=== PATIENT | female | born 1995 | race Two or more races ===

== ENCOUNTER 2025-05-15 08:11 | Emergency (ER) | payer BC, SELFPAY ==
[2025-05-15 08:13] VITALS: BP 125/89
--- NOTE | 2025-05-15 08:29 | ED.GENMED ---
History of Present Illness
General
Chief Complaint: Cold/Flu/URI Symptoms
Source: patient
Exam Limitations: none
Time Seen by Provider: 05/15/25 08:21
History of Present Illness
History of Present Illness:
See MDM
Past History
Past History
ED Past Medical History: None
ED Past Surgical History: None
Social History
Tobacco: Non-smoker
Alcohol: None
Phy Exam
Physical Exam
Physical Exam:
See MDM
Course
Orders/Labs/Results
Orders:
Orders
05/15/25 08:28
Dexamethasone Pf [Decadron] 10 mg PO NOW STA
Ipratropium/Albuterol Sulfate [Duoneb] 3 ml INH R NOW STA
CR Chest - 2 Views Urgent
Comment:
Reason For Exam: cough
05/15/25 09:13
Azithromycin [Zithromax] 500 mg PO NOW STA
Vital Signs
Initial and Last Documented VS:
Initial Vital Signs
Temp Pulse Resp BP Pulse Ox
98.6 F 91 16 125/89 99
05/15/25 08:13 05/15/25 08:13 05/15/25 08:13 05/15/25 08:13 05/15/25 08:13
Last Documented Vital Signs
Temp Pulse Resp BP Pulse Ox
98.6 F 91 16 125/89 99
05/15/25 08:13 05/15/25 08:13 05/15/25 08:13 05/15/25 08:13 05/15/25 08:33
MDM/Problems Addressed
Differential Diagnosis Includes:
Note:
CHIEF COMPLAINT(S)
Persistent cough, sore throat, and neck pain for one week.
HISTORY OF PRESENT ILLNESS
The patient is a 30-year-old female who has been experiencing symptoms of a persistent cough, sore throat, neck pain, and nausea for approximately one week. The patient reports the cough is constant and severe enough to induce vomiting, particularly
after eating solid foods. 'When I just eat soup, its okay, but when I eat solid, its like I throw it up.' She describes a sensation of pressure and non-stop coughing, which disrupts her sleep. The symptoms started spontaneously seven days ago. She
was evaluated at an urgent care facility on Sunday, where she was provided with Tessalon Pearls for the cough. Both influenza and COVID-19 tests were negative. The patient denies any known allergies and has no history of asthma. It is suspected that
she might have a viral infection, leading to an inflammation of the respiratory tract, ynes to bronchitis, potentially causing bronchospasm and excessive mucus production.
PHYSICAL EXAM
General: Alert, no acute distress.
Skin: Warm, dry.
Head: Normocephalic, atraumatic.
Neck: Supple, with palpable but non-tender posterior cervical lymphadenopathy. No evidence of meningismus
Eyes, Ears, Nose, Mouth, and Throat: Oral mucosa moist.
Cardiovascular: No signs of central cyanosis.
Respiratory: Respirations are non-labored. No wheezing auscultated but there is evidence of bronchospastic cough
Gastrointestinal: Abdomen nondistended.
Musculoskeletal: No deformities.
Neurological: Alert with no obvious focal neurological deficit observed.
Psychiatric: Cooperative, appropriate mood and affect.
PLAN
1. Perform a chest X-ray to rule out any underlying complications, such as pneumonia.
2. Prescribe an inhaler to aid in opening the airways.
3. Administer a course of oral steroids to reduce inflammation and mucus production.
4. Consider starting empirical treatment with a course of azithromycin to cover the possibility of pertussis, despite suspicion of a viral origin.
5. Educate the patient on the nature of Tessalon Pearls and their ineffectiveness in this case, as the problem lies in the lungs, not the posterior pharynx.
6. Follow up on the response to treatment and reassess the need for antibiotics based on clinical improvement.
DIFFERENTIAL DIAGNOSIS
The Differential Diagnosis includes, in no particular order and is not limited to:
1. Viral upper respiratory tract infection.
2. Acute bronchitis.
3. Pertussis.
4. Gastroesophageal reflux disease (GERD).
5. Post-nasal drip syndrome.
6. Pneumonia.
7. Asthma.
8. Bronchospasm-related cough.
9. Sinusitis.
10. Foreign body aspiration (unlikely given the clinical picture but should be considered if symptoms persist).
SUMMARY OF ENCOUNTER
The patient presented with a persistent cough, sore throat, and neck pain accompanied by nausea for one week. The cough was severe and induced vomiting, especially after consuming solid foods. A previous evaluation ruled out influenza and COVID-19,
suspecting a possible viral infection. In the emergency department, the patient was further assessed, and although the chest was clear, a decision was made to empirically treat the patient with azithromycin to rule out pertussis and administer a
course of oral steroids to help reduce inflammation and mucus production. The patient expressed feeling better post-treatment.
DISPOSITION
Discharge.
ASSESSMENT
Suspected bronchitis with clinical symptoms requiring treatment to manage inflammation and possible pertussis as a differential consideration.
PLAN
1. Administer azithromycin to cover pertussis.
2. Prescribe oral steroids to manage inflammation.
3. Educate the patient about the inefficacy of Tessalon Pearls for her condition.
4. Advise follow-up with primary care physician for continued management and reassessment of symptoms.
PATIENT EDUCATION AND COUNSELING
Discussed the nature and reason behind the treatments provided. Explained the importance of follow-up with the primary care physician.
FOLLOW-UP INSTRUCTIONS
Patient advised to follow up with their primary care physician for further evaluation and to monitor symptom resolution.
MEDICATION RECONCILIATION
Prescribed azithromycin for possible pertussis and an oral steroid for inflammation management.
MEDICAL DECISION MAKING
-Complexity of Data Reviewed: Viral upper respiratory tract infection, Acute bronchitis, Pertussis, Gastroesophageal reflux disease (GERD), Post-nasal drip syndrome, Pneumonia, Asthma, Bronchospasm-related cough, Sinusitis, Foreign body aspiration
(unlikely).
-Data:
Category 1
Tests reviewed included a negative influenza and COVID-19 result previously. A chest X-ray was considered but not ordered due to the clear chest upon examination.
Category 3
Discussion of management with the primary care physician was advised for follow-up and reassessment.
-Risk:
Prescription medication was prescribed (azithromycin and oral steroids).
DIAGNOSIS
Acute Bronchitis - ICD-10: J20.9
Possible Pertussis - ICD-10: A37.9
*Pulse Oximetry
SaO2: 99
Oxygen Mode of Delivery: Room air
Patient hypoxic: no
*Critical Care Note
Total Time (30-74mins, 75-104mins- exclusive of procedures): Not Applicable
ED Attending Note
-
Portions of this chart may have been created with voice recognition software.� Occasional wrong word or��sound alike� substitutions may have occurred due to the inherent limitations of voice recognition software.
Discharge Plan
Departure
Patient Disposition: Home (Routine Discharge)
Date of Disposition: 05/15/25
Time of Disposition: 09:14
Patient with high blood pressure during this ER visit?: No
Discharge Problem:
Acute bronchitis
Instructions: Acute Bronchitis, Adult (DC)
Prescriptions:
New
prednisone 20 mg tablet
40 mg PO DAILY Qty: 10 0RF
albuterol sulfate 90 mcg/actuation HFA aerosol inhaler
2 puff inhalation Q6H PRN (Reason: shortness of breath or wheezing) Qty: 8.5 0RF
azithromycin 250 mg tablet
250 mg PO DAILY 4 Days Qty: 4 0RF
Activity Restrictions/Additional Instructions:
Please return for any worsening symptoms.
You may return at any time if you have further concerns.
Please follow up with your doctor at the first available appointment, preferably this week.
You were given a dose of steroid and antibiotic today. Please start those tomorrow.
Thank you for choosing [facility].
Interventions
Interventions:
*Risk Screen - Suicide Last Done: 05/15/25 08:15
*Neglect/Abuse Screening Last Done: 05/15/25 08:15
Discharge Date and Time
Print Language: CITIZEN OF [place]
[2025-05-15] MEDS: DUONEB 3 ML INH (09:26)
[2025-05-15] MEDS: DECADRON 10 MG PO (09:26)
[2025-05-15] MEDS: ZITHROMAX 500 MG PO (09:32)
[2025-05-15 09:55] VITALS: BP 118/77
== END 2025-05-15 09:55 | disposition home or self-care (01) ==
LOC: EMR 08:11
PROVIDERS: EMERGENCY PHYSICIAN Student in an Organized Health Care Education/Training Program; FAMILY PHYSICIAN Family Medicine
DX: J20.9 Acute bronchitis, unspecified (principal)
CPT/HCPCS: 99283; 94640; 71046